=== PATIENT | female | born 1955 | race Caucasian/White ===

== ENCOUNTER 2017-02-28 06:00 | Day surgery (SDC) | payer OTHER ==
[2017-02-28] MEDS ORDERED: PROPOFOL 20 ML IV ONE ×2 (07:00→07:32)
[2017-02-28] MEDS ORDERED: LIDOCAINE Viscous 2% 15 ML UDCUP ONE (07:06)
== END 2017-02-28 08:15 | disposition home or self-care (01) ==
LOC: SDC 06:00
PROVIDERS: ATTEND Family Medicine
DX: Z12.11 Encounter for screening for malignant neoplasm of colon (principal); K64.4 Residual hemorrhoidal skin tags; K57.30 Diverticulosis of large intestine without perforation or abscess without bleeding
CPT/HCPCS: 45378; A9270